=== PATIENT | male | born 1985 | race American Indian/Alaskan Native ===

== ENCOUNTER 2016-09-11 01:33 | Emergency (ER) | payer OTHER ==
[2016-09-11 01:47] VITALS: RESP 20
[2016-09-11] MEDS ORDERED: Albuterol-Ipratrop 3 mg / 0.5 (3 ml) UD IH STA (01:56)
--- NOTE | 2016-09-11 02:01 | C.PDOC ---
History Of Present Illness 30 year old male with PMH asthma presents to ED with complaints of midsternal chest pain since yesterday. Patient reports when he was at work yesterday he was lifting heavy palletes and felt pain shortly after to chest and back. Additionally patient reports 2 weeks ago he was exposed to some paint fumes and had and asthma attack. He states he was evaluated at another hospital. Patient continues to have cough and occasional pain with deep inspiration. Patient denies fever, chills, SOB, palpitations, nausea, vomiting, light headedness, or any other complaints. Time Seen by Provider: 09/11/16 01:49 Chief Complaint (Nursing): Chest Pain History Per: Patient History/Exam Limitations: no limitations Onset/Duration Of Symptoms: Days Current Symptoms Are (Timing): Still Present Severity: Mild Recent travel outside of the [place]: No Additional History Per: Patient Past Medical History Reviewed: Historical Data, Nursing Documentation, Vital Signs Vital Signs: Last Vital Signs Temp 99.1 F 09/11/16 01:43 Pulse 74 09/11/16 01:43 Resp 20 09/11/16 01:43 BP 146/100 H 09/11/16 01:43 Pulse Ox 96 09/11/16 04:04 - Medical History PMH: Asthma Family History: States: Unknown Family Hx - Social History Hx Alcohol Use: Yes Hx Substance Use: No - Immunization History Hx Tetanus Toxoid Vaccination: No Hx Influenza Vaccination: No Hx Pneumococcal Vaccination: No Review Of Systems Except As Marked, All Systems Reviewed And Found Negative. Constitutional: Negative for: Fever, Chills Cardiovascular: Positive for: Chest Pain (Midsternum chest pain). Negative for : Palpitations, Light Headedness Respiratory: Positive for: Cough, Shortness of Breath Gastrointestinal: Negative for: Nausea, Vomiting Neurological: Negative for: Weakness, Numbness, Headache, Dizziness Psych: Positive for: Anxiety Physical Exam - Physical Exam Appears: Non-toxic, No Acute Distress, Other (Appears anxious) Skin: Warm, Dry Head: Atraumatic, Normacephalic Eye(s): bilateral: Normal Inspection, EOMI Nose: Normal Oral Mucosa: Moist Chest: Symmetrical, Tenderness (midsternal), No Subcutaneous Emphysema Cardiovascular: Rhythm Regular, No Murmur Respiratory: Normal Breath Sounds, No Accessory Muscle Use, No Rales, No Rhonchi , No Wheezing Gastrointestinal/Abdominal: Bowel Sounds, Soft, No Tenderness, No Mass, No Distention, No Guarding Back: Normal Inspection, No Vertebral Tenderness, No Paraspinal Tenderness Extremity: Normal ROM, No Tenderness, No Pedal Edema, Capillary Refill (<2secs) , No Deformity, No Swelling Neurological/Psych: Oriented x3, Normal Speech, Other (No focal deficit) ED Course And Treatment - Laboratory Results Result Diagrams: 09/11/16 02:11 09/11/16 02:11 O2 Sat by Pulse Oximetry: 96 (RA) Pulse Ox Interpretation: Normal Medical Decision Making Medical Decision Making: Impression: 30 y.o male with chest pain and SOB Plan: * Labs * EKG * CXR * duoneb, solumedrol, O2 Progress: Patient assessed and examined. EKG obtained and reviewed showing NS at 81 bpm with no ischemic changes as interpreted by Dr Chapman. Patient placed on cardiac rehab nurse. Orders placed for labs including CE and CXR. Oxygen given via nasal cannula. Patient continued to complain of pain and also now complains of headache, Morphine was ordered. All labs reviewed and unremarkable, negative troponin. CXR shows no acute disease. Based on negative EKG, CXR and lab findings, low clinical suspicion for ACS. Patient re-evaluated and states he feels palpitations and SOB with movement. Patient appears anxious. I ask him further questions and he admits history of panic attacks in the past, used to take klonopin. Xanax PO was ordered.On reevaluation patient reports feeeling better. Advise patient to rest and to take analgesics as needed. Lungs clear bilaterally, vital signs stable Disposition Counseled Patient/Family Regarding: Studies Performed, Diagnosis, Need For Followup - Disposition Referrals: Kalyani Stokes MD [Primary Care Provider] - Disposition: HOME/ ROUTINE Disposition Time: 04:20 Condition: IMPROVED Additional Instructions: Your labs , EKG and Chest xray were normal Follow up with your primary medical doctor Dr Stokes in 2-5 days for further evaluation. Take aspirin for any pain as needed, inhaler as needed and prednisone for any difficulty breathing Return to the emergency department at any time if symptoms persist or worsen. Prescriptions: Albuterol HFA [Ventolin HFA 90 mcg/actuation (8 g)] 1 puff IH Q4 #1 puff Ibuprofen [Motrin] 600 mg PO Q8 #30 tab Prednisone 50 mg PO DAILY #5 tablet Instructions: Musculoskeletal Pain (ED), Anxiety (ED) - POA Present On Arrival: None - Clinical Impression Clinical Impression: Musculoskeletal chest pain, Anxiety - Scribe Statement The provider has reviewed the documentation as recorded by the Katyaibrossi [email or web address] All medical record entries made by the Katyaibe were at my direction and personally dictated by me. I have reviewed the chart and agree that the record accurately reflects my personal performance of the history, physical exam, medical decision making, and the department course for this patient. I have also personally directed, reviewed, and agree with the discharge instructions and disposition.
[2016-09-11 02:14] LABS: BASO # 0.1 K/uL (0.0-0.2); BASO % 1.1 % (0.0-2.0); EOS # 0.3 K/uL (0.0-0.7); HEMATOCRIT 41.3 % (35.0-51.0); LYMPH # 2.7 K/uL (1.0-4.3); MEAN CELL VOLUME 80.7 fL (80.0-94.0); MEAN CORPUSCULAR HEMOGLOBIN 26.7 pg (27.0-31.0); MEAN CORPUSCULAR HGB CONC 33.1 g/dL (33.0-37.0); MEAN PLATELET VOLUME 7.9 fL (7.2-11.7); MONO # 0.7 K/uL (0.0-0.8); MONO % 6.7 % (0.0-10.0); RED CELL DISTRIBUTION WIDTH 13.9 % (11.5-14.5); WHITE BLOOD COUNT 10.1 K/uL (4.8-10.8)
[2016-09-11] MEDS ORDERED: MethylPREDNISolone 40 mg Vial ONE (02:15)
[2016-09-11 02:19] LABS: CHLORIDE 102 mmol/L (98-107)
[2016-09-11 02:20] LABS: POTASSIUM 3.8 mmol/L (3.6-5.2); SODIUM 139 mmol/L (132-148)
[2016-09-11 02:22] LABS: ALB/GLOB RATIO 1.6 (1.0-2.1); ALKALINE PHOSPHATASE 68 U/L (38-126); AST/SGOT 28 U/L (17-59); BILIRUBIN,TOTAL 0.5 mg/dL (0.2-1.3); BLOOD UREA NITROGEN 14 mg/dL (9-20); CARBON DIOXIDE 21 mmol/L (22-30); GFR AFRICAN-AMERICAN > 60; GLUCOSE,RANDOM 94 mg/dL (75-110); TOTAL PROTEIN 7.2 g/dL (6.3-8.3)
[2016-09-11 02:23] LABS: ALT/SGPT 29 U/L (21-72); CALCIUM 8.6 mg/dl (8.6-10.4)
[2016-09-11] MEDS ORDERED: Morphine 4 MG/ML VIAL ONE (02:44)
[2016-09-11 02:53] LABS: RBC URINE 1 /hpf (0-3); URINE BILIRUBIN NEGATIVE (NEGATIVE); URINE BLOOD NEGATIVE (NEGATIVE); URINE COLOR Yellow (YELLOW); URINE GLUCOSE (UA) NORMAL (Normal); URINE KETONE NEGATIVE (NEGATIVE); URINE LEUKOCYTE ESTERASE NEG Leu/uL (Negative); URINE PROTEIN NEGATIVE (NEGATIVE); URINE UROBILINOGEN NORMAL mg/dL (0.2-1.0); WBC URINE < 1 /hpf (0-5)
[2016-09-11 04:33] VITALS: BP 142/70; PULSE 77; TEMP 98
[2016-09-11 04:34] VITALS: O2SAT 96
--- NOTE | 2016-09-11 09:48 | RAD ---
HISTORY: cough COMPARISON: No prior. TECHNIQUE: Chest PA and lateral FINDINGS: LUNGS: Mild venous congestion. PLEURA: No significant pleural effusion identified. No pneumothorax apparent. CARDIOVASCULAR: Normal. OSSEOUS STRUCTURES: No significant abnormalities. VISUALIZED UPPER ABDOMEN: Normal. OTHER FINDINGS: None. IMPRESSION: Mild venous congestion.
--- NOTE | 2016-09-13 11:33 | CARD ---
APPROVED REPORT EKG Measurement Heart [id number] <Conclusion> Normal sinus rhythm with sinus arrhythmia Nonspecific T wave abnormality Abnormal ECG
== END 2016-09-11 04:33 | disposition home or self-care (01) ==
LOC: C.ER 01:33 → SUPCPDRO 01:33 → C.ER 04:33
DX: R07.89 Other chest pain (principal); F41.9 Anxiety disorder, unspecified
CPT/HCPCS: 71020; 80053; 81001; 83880; 84484; 85025; 96374; 96375; 99285; J2270; J2930